=== PATIENT | female | born 2000 | race Caucasian/White ===

== ENCOUNTER 2020-09-13 01:06 | Emergency (ER) | payer OTHER, SELFPAY ==
[2020-09-13] MEDS ORDERED: Sulfameth/Trimethoprim DS 800-160mg TAB ONE (01:39)
== END 2020-09-13 01:57 | disposition home or self-care (01) ==
LOC: MADERS 01:06
DX: T54.91XA Toxic effect of unspecified corrosive substance, accidental (unintentional), initial encounter (principal); T20.45XA Corrosion of unspecified degree of scalp [any part], initial encounter; F17.210 Nicotine dependence, cigarettes, uncomplicated
CPT/HCPCS: 99283